=== PATIENT | female | born 1990 | race Two or more races ===

== ENCOUNTER 2016-12-20 11:54 | Emergency (ER) | payer SELFPAY ==
[~2016-12-20 11:54] MED LIST: ADULT LOW DOSE81 M1 PO; ANUCORT-HC25 M2 RC; ANUSOL-HC30 GM RC; BACTRIM DS TABL1 TAB PO; COLACE100 MG PO; FERROUS SULFAT325 MG PO; IBU-200200 MG PO; IBUPROFEN600 M1 PO; IBUPROFEN800 MG PO; IRON325 M3 PO; KEFLEX500 M4 PO; KEFLEX500 MG PO; KEPPRA500 M3 PO; LABETALOL HCL200 M1 PO; METHERGINE0.2 MG PO; NORCO 5-325 TA1 EACH PO; NORCO 5/325 TAB1 TAB PO; NORCO 5/3251 TAB PO; PRENATAL TABLE1 EAC5 PO; PRENATAL VITAM1 EAC5 PO; PRENATAL VITAMI1 TAB PO; PRENATAL1 EACH PO; PYRIDIUM200 MG PO; SLOW FE160 MG PO; TYLENOL325 MG PO; TYLENOL500 MG PO; TYLENOL650 MG PO; VIBRAMYCIN100 MG/TA1 PO; VISTARIL50 M1 PO; VOLTAREN75 MG PO; ZOFRAN4 M2 PO
[2016-12-20] MEDS ORDERED: NO HOME MEDICATION XX (12:18)
[2016-12-20] MEDS ORDERED: AMOXICILLIN500 M2 PO (13:34)
[2017-04-06] MEDS ORDERED: EPIPEN 2-P0.3 MG/0.3 IM (20:24)
[2017-04-06] MEDS ORDERED: BENADRYL25 M3 PO (20:24)
== END 2016-12-20 13:45 ==
LOC: EDMED 11:54
DX: J03.00 Acute streptococcal tonsillitis, unspecified (principal)